=== PATIENT | female | born 1985 | race Caucasian/White ===

== ENCOUNTER 2016-12-21 02:37 | Outpatient (CLI) | payer BC ==
[~2016-12-21] VITALS: Ht 170.2 cm; Wt 84.0 kg
[~2016-12-21 02:37] MED LIST: IBUP-1222 PO; OXYC-302 PO
== END 2016-12-21 04:15 | disposition home or self-care (01) ==
LOC: LDOP 02:37
PROVIDERS: ATTEND Obstetrics & Gynecology
DX: O47.1 False labor at or after 37 completed weeks of gestation (principal); O34.219 Maternal care for unspecified type scar from previous cesarean delivery; Z3A.39 39 weeks gestation of pregnancy
CPT/HCPCS: 59025; 99211; G0463

== ENCOUNTER 2016-12-23 09:01 | Inpatient (IN) | payer BC ==
[~2016-12-23] VITALS: Ht 170.2 cm; Wt 84.1 kg
[2016-12-23] MEDS ORDERED: NEWBORN KIT ONE (09:45)
[2016-12-23] MEDS ORDERED: LACTATED RINGERS 1,000 ML IV SCH ×2 (09:47→11:30)
[2016-12-23] MEDS ORDERED: OXYTOCIN 30U/ 0.9% NaCL 500ML 500 ML IV SCH (09:47)
[2016-12-23] MEDS ORDERED: LACTATED RINGERS 1,000 ML IVBOLUS ONE (10:00)
[2016-12-23] MEDS ORDERED: METOCLOPRAMIDE 5 MG/ML, 2ML IV ONE (10:00)
[2016-12-23] MEDS ORDERED: CEFAZOLIN PMX 1GM/50ML 50 ML IVPB ONE (10:00)
[2016-12-23] MEDS ORDERED: SODIUM CITRATE/CITRIC ACID 30 ML UDC PO ONE (10:00)
[2016-12-23] MEDS ORDERED: OXYTOCIN 30U/ 0.9% NaCL 500ML 500 ML ONE (10:28)
[2016-12-23] MEDS ORDERED: SODIUM CITRATE/CITRIC ACID 30 ML UDC ONE (10:28)
[2016-12-23] MEDS ORDERED: METOCLOPRAMIDE 5 MG/ML, 2ML ONE (10:28)
[2016-12-23 10:33] VITALS: BP 109/58
[2016-12-23 10:59] LABS: HEMATOCRIT 37.8 % (34.6-47.8); WHITE BLOOD COUNT 9.5 x10^3/uL (3.4-10)
[2016-12-23 11:00] LABS: LARGE PLATELETS 1+
[2016-12-23] MEDS: OXYTOCIN 30U/ 0.9% NaCL 500ML 500 ML IV SCH ×2 (12:52→22:52)
[2016-12-23] MEDS: LACTATED RINGERS 1,000 ML IV SCH ×4 (12:52→22:52)
[2016-12-23] MEDS: KETOROLAC 30 MG/1 ML IV SCH ×2 (13:00→18:34)
[2016-12-23] MEDS ORDERED: morphine SULFATE 10 MG/ML, 1ML IVPush PRN (13:00)
[2016-12-23] MEDS ORDERED: MEPERIDINE/PF 25MG/0.5ML IVPush PRN (13:00)
[2016-12-23] MEDS ORDERED: ONDANSETRON 2MG/ML, 2ML IVPush PRN (13:00)
[2016-12-23] MEDS ORDERED: ONDANSETRON 2MG/ML, 2ML IV PRN (13:00)
[2016-12-23] MEDS ORDERED: OXYcodone/APAP 5/325MG TABLET PO PRN (13:00)
[2016-12-23] MEDS ORDERED: MIDAZOLAM 1 MG/ML, 2ML IV PRN (13:00)
[2016-12-23] MEDS ORDERED: EPHEDRINE 50 MG/ML, 1ML IVPush PRN (13:00)
[2016-12-23] MEDS ORDERED: MISOPROSTOL 200 MCG TABLET PR PRN (13:00)
[2016-12-23] MEDS ORDERED: FENTANYL PF 100 MCG/2ML IV PRN (13:00)
[2016-12-23] MEDS ORDERED: OXYcodone 5 MG/5 ML ORAL.SOL UDC PO PRN (13:00)
[2016-12-23] MEDS ORDERED: morphine SULFATE 10 MG/ML, 1ML ONE (14:20)
[2016-12-23] MEDS: morphine SULFATE 10 MG/ML, 1ML IV PRN ×2 (14:24→14:41)
[2016-12-23 15:00] VITALS: BP 122/68
[2016-12-23] MEDS: OXYcodone IR 5MG TABLET PO PRN ×3 (15:38→23:55)
[2016-12-23] MEDS: ACETAMINOPHEN 325 MG TABLET PO PRN (15:38)
[2016-12-23 19:15] VITALS: BP 101/51
[2016-12-23] MEDS: DOCUSATE 100 MG CAPSULE PO PRN (20:01)
[2016-12-23 20:26] LABS: HEMATOCRIT 34.2 % (34.6-47.8); HEMOGLOBIN 11.6 g/dL (11.7-16.4); WHITE BLOOD COUNT 12.3 x10^3/uL (3.4-10)
[2016-12-23 20:41] LABS: DIFF TOTAL CELLS COUNTED 100 CELL DIFF
[2016-12-23 20:47] LABS: LARGE PLATELETS 1+; VERIFY COUNTS? YES
[2016-12-24 00:07] VITALS: BP 98/55
[2016-12-24] MEDS: KETOROLAC 30 MG/1 ML IV SCH ×5 (00:38→19:00)
[2016-12-24] MEDS: OXYcodone IR 5MG TABLET PO PRN ×5 (04:01→23:47)
[2016-12-24 04:25] VITALS: BP 103/46
[2016-12-24] MEDS: LACTATED RINGERS 1,000 ML IV SCH ×5 (04:52→20:52)
[2016-12-24 07:30] VITALS: BP 103/57
[2016-12-24] MEDS: DOCUSATE 100 MG CAPSULE PO PRN ×2 (08:05→23:47)
[2016-12-24] MEDS: PRENATAL VIT/IRON/FA 1 EACH TABLET PO SCH (08:05)
[2016-12-24] MEDS: OXYTOCIN 30U/ 0.9% NaCL 500ML 500 ML IV SCH ×2 (08:52→18:52)
[2016-12-24] MEDS: ACETAMINOPHEN 325 MG TABLET PO PRN (15:58)
[2016-12-24] MEDS ORDERED: IBUPROFEN 600 MG TABLET ONE (18:29)
[2016-12-24] MEDS: IBUPROFEN 600 MG TABLET PO PRN (18:31)
[2016-12-24 19:25] VITALS: BP 110/61
[2016-12-25] MEDS: KETOROLAC 30 MG/1 ML IV SCH ×2 (01:00→06:42)
[2016-12-25] MEDS: IBUPROFEN 600 MG TABLET PO PRN ×3 (01:53→15:10)
[2016-12-25] MEDS: OXYcodone IR 5MG TABLET PO PRN ×4 (04:09→16:12)
[2016-12-25] MEDS: LACTATED RINGERS 1,000 ML IV SCH ×4 (04:52→14:52)
[2016-12-25] MEDS: OXYTOCIN 30U/ 0.9% NaCL 500ML 500 ML IV SCH ×2 (04:52→14:52)
[2016-12-25] MEDS ORDERED: IBUP-1222 PO (06:51)
[2016-12-25] MEDS ORDERED: OXYC-302 PO (06:52)
[2016-12-25 07:00] VITALS: BP 111/67
[2016-12-25] MEDS: PRENATAL VIT/IRON/FA 1 EACH TABLET PO SCH (08:12)
[2016-12-25] MEDS: DOCUSATE 100 MG CAPSULE PO PRN (08:12)
[2016-12-25] MEDS: ACETAMINOPHEN 325 MG TABLET PO PRN ×2 (08:12→16:12)
[2016-12-25] MEDS ORDERED: IBUPROFEN 600 MG TABLET PO PRN (13:00)
== END 2016-12-25 18:08 | disposition home or self-care (01) | DRG 766 ==
LOC: LDIP 09:42 → 2NW 15:10
PROVIDERS: ADMIT Obstetrics & Gynecology; ATTEND Obstetrics & Gynecology
PROC: 10D00Z1 Extraction of Products of Conception, Low, Open Approach (ICD-10-PCS; principal; 2016-12-23)
DX: O34.211 Maternal care for low transverse scar from previous cesarean delivery (principal); Z37.0 Single live birth; Z3A.39 39 weeks gestation of pregnancy
CPT/HCPCS: 36415; 85025; 86850; 86900; J1885; J2270; J2590; J2765; J7120